=== PATIENT | female | born 1970 | race Two or more races ===

== ENCOUNTER 2021-08-09 23:46 | Emergency (ER) | payer MEDICAID, OTHER ==
[~2021-08-09] VITALS: Ht 160 cm; Wt 68.0 kg
[2021-08-10 01:21] LABS: Basophils # (auto) 0 10 ^3/uL (0-0.2); Basophils % (auto) 0.2 % (0.0-2.0); Eosinophils # (auto) 0.1 10 ^3/uL (0-0.8); Eosinophils % (auto) 0.7 % (0.0-7.0); Hematocrit 37.6 % (36.0-46.0); Hemoglobin 13.1 g/dL (12.2-16.2); Lymphocytes # (auto) 0.5 10 ^3/uL (0.4-5.4); Lymphocytes % (auto) 6.1 % (10.0-50.0); Mean Corpuscular Hgb Conc. 34.7 g/dL (32.0-36.0); Mean Corpuscular Volume 92.2 fL (80.0-100.0); Monocytes # (auto) 0.2 10 ^3/uL (0-1.3); Monocytes % (auto) 2.9 % (0.0-12.0); Neutrophils # (auto) 7.1 10 ^3/uL (1.6-8.6); Neutrophils % (auto) 90.1 % (37.0-80.0); Nucleated Red Blood Cells % 0.1 %; Red Blood Cells 4.07 10^6/uL (4.0-5.20); White Blood Cell 7.9 10^3/uL (4.4-10.8)
[2021-08-10 01:37] LABS: Albumin 3.2 g/dL (3.4-5.0); Calcium 8.2 mg/dL (8.5-10.1); Potassium 3.9 mmol/L (3.5-5.1)
[2021-08-10 01:39] LABS: Lactic Acid w/Reflex 2.4 mmol/L (0.4-2.0)
[2021-08-10 01:43] LABS: Bilirubin, Total 0.4 mg/dL (0.2-1.0); Total Protein 6.9 g/dL (6.4-8.2)
[2021-08-10] MEDS ORDERED: SODIUM CHLORIDE 0.9% 1,000 ML IV ONE ×2 (01:45)
[2021-08-10] MEDS ORDERED: METOCLOPRAMIDE HCL 5MG/ml INJ 2ml VIAL IV ONE (01:45)
[2021-08-10] MEDS ORDERED: SUMAtriptan SUCCINATE 6 MG/0.5 ML VL SC ONE (01:45)
[2021-08-10 02:06] LABS: Urine Bacteria NONE SEEN /hpf (None Seen); Urine Blood Negative /uL (Negative); Urine Mucus FEW (None Seen); Urine Specific Gravity 1.026 (1.001-1.035); Urine WBC 1 /hpf (0 - 5)
[2021-08-10 02:28] LABS: Alcohol, Urine < 3.0 mg/dL (0-10); Amphetamine Screen, Urine NEGATIVE (NEGATIVE); Barbiturate Scree,Urine NEGATIVE (NEGATIVE); Benzodiazephine Screen, Urine NEGATIVE (NEGATIVE); Cannabinoid Screen, Urine NEGATIVE (NEGATIVE); Cocaine Screen, Urine NEGATIVE (NEGATIVE); Opiate Scree,Urine NEGATIVE (NEGATIVE); Phencyclidine Screen, Urine NEGATIVE (NEGATIVE)
[2021-08-10 06:12] VITALS: BP 106/60
== END 2021-08-10 06:45 | disposition home or self-care (01) ==
LOC: ER 23:46 → EDBD 23:46 → ER 08-10 06:45
DX: G44.209 Tension-type headache, unspecified, not intractable (principal); R11.0 Nausea; G43.909 Migraine, unspecified, not intractable, without status migrainosus; Z86.73 Personal history of transient ischemic attack (TIA), and cerebral infarction without residual deficits
CPT/HCPCS: 36415; 71045; 80053; 80307; 81001; 83605; 84484; 85025; 87040; 87086; 93005; 96361; 96372; 96374; 99285; J2765; J3030; J7030

== ENCOUNTER 2025-01-04 12:00 | Inpatient (IN) | payer MEDICAID ==
[~2025-01-04] VITALS: Ht 154.9 cm; Wt 49.0 kg
--- NOTE | 2025-01-04 12:30 | ED.PDOC ---
HPI (NEURO) HPI Comments 54-year-old female with a history of hypertension, diabetes, dyslipidemia and 2 prior strokes with residual left lower extremity weakness brought in by private car, referred by Dr. Albert to rule out stroke. Patient states she was being evaluated in Dr. Albert's office for a headache that she developed last night, when she had sudden onset of left facial numbness/weakness and left upper and lower extremity weakness. She states the current symptoms started around 11:30 a.m.. She denies any vision changes, nausea or vomiting. She states she is usually able to ambulate, however her left lower extremity occasionally gives out. 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 History Family History Family History: Unknown Social History Smoker: Non-Smoker Alcohol: Denies ETOH Use Drugs: Denies Drug Use Lives In: Home Constitutional: denies: chills, diaphoresis, fatigue, fever, malaise, sweats, weakness, others EENTM: denies: blurred vision, double vision, ear bleeding, ear discharge, ear drainage, ear pain, ear ringing, eye pain, eye redness, hearing loss, mouth pain, mouth swelling, nasal discharge, nose bleeding, nose congestion, nose pain, photophobia, tearing, throat pain, throat swelling, voice changes, others Respiratory: denies: cough, hemoptysis, orthopnea, SOB at rest, shortness of breath, SOB with excertion, stridor, wheezing, others Cardiovascular: denies: chest pain, dizzy spells, diaphoresis, Dyspnea on exertion, edema, irregular heart beat, left arm pain, lightheadedness, palpitations, PND, syncope, others Gastrointestinal: denies: abdomen distended, abdominal pain, blood streaked bowels, constipated, diarrhea, dysphagia, difficulty swallowing, hematemesis, melena, nausea, poor appetite, poor fluid intake, rectal bleeding, rectal pain, vomiting, others Genitourinary: denies: abnormal vagina bleeding, burning, dyspareunia, dysuria, flank pain, frequency, hematuria, incontinence, pain, , vagina discharge, urgency, others Neurological: reports: left sided numbness, left sided weakness, numbness, pre- existing deficit, weakness; denies: dizziness, fainting, headache, paresthesia, right sided numbness, right sided weakness, seizure, speech problems, tingling, tremors, others Musculoskeletal: denies: back pain, gout, joint pain, joint swelling, muscle pain, muscle stiffness, neck pain, others Integumetry: denies: bruises, change in color, change in hair/nails, dryness, laceration, lesions, lumps, rash, wounds, others Allergic/Immunocompromised: denies: Difficulty Healing, Frequent Infections, Hives, Itching, others Hematologic/Lymphatic: denies: anemia, blood clots, easy bleeding, easy bruising, swollen glands, others Endocrine: denies: excessive hunger, excessive sweating, excessive thirst, excessive urination, flushing, intolerance to cold, intolerance to heat, unexplained weight gain, unexplained weight loss, others Psychiatric: denies: anxiety, bipolar disorder, depression, hopeless, panic disorder, schizophrenia, sleepless, suicidal, others All Other Systems: Reviewed and Negative Physical Exam General Appearance: Mild Distress HEENT: PERRL/EOMI, Other (Left facial droop) Neck: Full Range of Motion, Non-Tender, Normal Inspection, Supple Respiratory: Lungs Clear, No Accessory Muscle Use, No Respiratory Distress, Normal Breath Sounds Cardiovascular: No Edema, No JVD, Tachycardia Breast Exam: Deferred Gastrointestinal: Non Tender, Soft Genitalia: Deferred Pelvic: Deferred Rectal: Deferred Extremities: Normal inspection, Normal range of motion, Non-tender, No pedal edema Neurologic: Alert (Oriented x4), toddler nanny II-XII nml as Tested (Except 5 and 7), Facial Droop (Left), Headache, Motor Weakness, Sensory Deficit, Other (Left facial droop, diminished light touch sensation left face, left pronator drift, 2/5 strength left upper extremity, 1/5 strength left lower extremity) Cerebellar Function: NOT DONE Reflexes: NOT DONE Skin: Dry, Normal Color, Warm Lymphatic: NOT DONE Was a procedure done? Was a procedure done?: No Differential Diagnosis (SZ) Seizure: CVA/TIA, Hypocalcemia, Hypoglycemia, Hyponatremia, Idiopathic, Mass Lesion, Meningitis, Encephalopathy, Other (Complicated migraine) Headache: Epidural Hemorrhage, Intracerebral Hemorrhage, Subarachnoid Hemorrhage, Subdural Hemorrhage X-Ray, Labs, Meds, VS Vital Signs Date Time Temp Pulse Resp B/P (MAP) Pulse Ox O2 Delivery O2 Flow Rate FiO2 01/04/25 14:00 82 19 125/71 (89) 97 01/04/25 13:30 89 18 134/70 01/04/25 13:03 101 14 131/83 01/04/25 13:00 98 25 131/81 (98) 98 01/04/25 12:20 107 01/04/25 12:12 Room Air* 0 21 01/04/25 12:12 97.7 108 17 146/77 (100) 99 97.7 01/04/25 12:02 97.3 106 18 146/93 97 97.3 Lab Test 01/04/25 13:07 01/04/25 12:25 01/04/25 12:20 Range/Units Troponin I High Sensitivity < 3 L < 3 L </=34 ng/L POC Glucose 91 70-106 mg/dl White Blood Count 7.5 4.4-10.8 10^3/uL Red Blood Count 4.43 4.0-5.20 10^6/uL Hemoglobin 13.9 12.2-16.2 g/dL Hematocrit 41.3 36.0-46.0 % Mean Corpuscular Volume 93.1 80.0-100.0 fL Mean Corpuscular Hemoglobin 31.4 28.0-32.0 pg Mean Corpuscular Hemoglobin Concent 33.8 32.0-36.0 g/dL Red Cell Distribution Width 13.0 11.8-14.3 % Platelet Count 234 140-450 10^3/uL Mean Platelet Volume 8.9 6.9-10.8 fL Neutrophils (%) (Auto) 70.0 37.0-80.0 % Lymphocytes (%) (Auto) 22.4 10.0-50.0 % Monocytes (%) (Auto) 6.9 0.0-12.0 % Eosinophils (%) (Auto) 0.3 0.0-7.0 % Basophils (%) (Auto) 0.4 0.0-2.0 % Neutrophils # (Auto) 5.2 1.6-8.6 10 ^3/uL Lymphocytes # (Auto) 1.7 0.4-5.4 10 ^3/uL Monocytes # (Auto) 0.5 0-1.3 10 ^3/uL Eosinophils # (Auto) 0 0-0.8 10 ^3/uL Basophils # (Auto) 0 0-0.2 10 ^3/uL Nucleated Red Blood Cells 0.0 % Prothrombin Time 10.1 9.3-11.8 sec Prothrombin Time INR 0.95 0.9-1.15 Sodium Level 143 136-145 mmol/L Potassium Level 3.6 3.5-5.1 mmol/L Chloride Level 103 98-107 mmol/L Carbon Dioxide Level 30 20-31 mmol/L Anion Gap 10 5-15 Blood Urea Nitrogen 19 9-23 mg/dL Creatinine 0.76 0.550-1.02 mg/dL Glomerular Filtration Rate Calc 92 >90 mL/min BUN/Creatinine Ratio 25.0 H 10.0-20.0 Serum Glucose 76 74-106 mg/dL Calcium Level 9.7 8.7-10.4 mg/dL Total Bilirubin 0.6 0.2-1.0 mg/dL Aspartate Amino Transferase (AST) 21 13-40 U/L Alanine Aminotransferase (ALT) 23 7-40 U/L Alkaline Phosphatase 62 46-116 U/L B-Type Natriuretic Peptide 30.31 0-100 pg/mL Total Protein 7.0 5.7-8.2 g/dL Albumin 4.6 3.2-4.8 g/dL Current Medications Medications (Trade) Dose Ordered Sig/Leonela Route Start Time Stop Time Status Last Admin Morphine Sulfate 4 mg ONCE ONCE IV 01/04/25 13:00 01/04/25 13:01 DC 01/04/25 13:03 Metoclopramide HCl (Reglan Injection) 10 mg ONCE ONCE IV 01/04/25 13:00 01/04/25 13:01 DC 01/04/25 13:03 PROCEDURE(s): CTH - STROKE CTH REASON: L side weak x 1 h ORDER NUMBER(s): [id number], ACCESSION NUMBER(s): [id number] CT brain without contrast CLINICAL INDICATION: L side weak x 1 h FINDINGS: The study was performed in a multidetector scanner. This study performed taking axial images from the skull base up to the vertex. Both brain and bone windows are photographed. Dose lowering techniques have been used including automated exposure control and adjustment of mA and/or KV according to patient size. Normal and symmetrical shape and density of brain parenchyma above and below the tentorium is seen. There is no mass, midline shift or hydrocephalus. No intra/extra-axial collections demonstrated. There is no intracranial hemorrhage. The calvarium is intact. IMPRESSION: 1. Normal brain and skull. No evidence of intraparenchymal hemorrhage or edema Verbal report given on this patient to the referring physician Dr. Juárez at 1:00 p.m. Computed Tomographic Radiation Dosimetry Report: Total CTDI vol = 52 mGy Total DLP = 897 mGy-cm All CT scans at this medical facility are performed using dose modulation techniques as appropriate to a performed exam including the following: Automated exposure control was utilized; adjustment of the MA and/or KvP according to patient size; and use of iterative reconstruction technique. EDURE(s): [place] - ANGIO HEAD/Neck REASON: L side weak ORDER NUMBER(s): [id number], ACCESSION NUMBER(s): [id number] INDICATION: L side weak COMPARISON: CT STROKE CTH on DOS: 01/04/25 TECHNIQUE: CTA head with intravenous contrast. CTA neck with intravenous contrast. 3D image postprocessing was performed on a dedicated workstation and images were used for interpretation and reporting. Radiation Dose Information: CT Dose: CTDI volume is 22 mGy. Dose-length product is 750 mGy*cm CONTRAST: Type of contrast: Omni 350 Contrast injected: 85 ml FINDINGS: CTA head: There is normal enhancement of the visualized distal internal carotid, anterior and middle cerebral arteries. There is a normal anterior communicating artery complex. Right V4 segment is diminutive. Dominant left posterior communicating artery. The vertebral, basilar, cerebellar and posterior cerebral arteries are within normal limits. The early parenchymal enhancement is grossly unremarkable. The visualized intracranial venous structures are grossly unremarkable. CTA neck: The visualized thoracic aortic arch and proximal great vessels are unremarkable. The left common, internal and external carotid arteries are within normal limits. The right common, internal and external carotid arteries are within normal limits. The cervical segments of the right and left vertebral arteries are within normal limits. The limited visualized lung apices are clear. The surrounding soft tissues and osseous structures are otherwise unremarkable. IMPRESSION: 1. No evidence of hemodynamically significant intracranial stenosis, proximal occlusion or aneurysm. 2. No evidence of hemodynamically significant carotid stenosis or dissection. All CT scans at this medical facility are performed using dose modulation techniques as appropriate to a performed exam including the following: Automated exposure control was utilized; adjustment of the MA and/or KV according to patient size; and use of iterative reconstruction technique. HS:Y EDURE(s): CXRP - CHEST PORTABLE REASON: poss cva ORDER NUMBER(s): [id number], ACCESSION NUMBER(s): [id number] INDICATION: poss cva TECHNIQUE: Frontal view of the chest. COMPARISON: CHEST PORTABLE on DOS: 08/10/21 FINDINGS: Cardiomegaly with pulmonary edema. The heart and mediastinal contours are grossly unremarkable. There is no evidence of pleural disease. The bony stru ctures of the chest are intact without fracture. IMPRESSION: 1. Cardiomegaly with mild pulmonary edema X-Ray, Labs, Meds, VS Comment 54-year-old female with a history of CVA, migraines, hypertension, diabetes and dyslipidemia brought in by private car, referred by Dr. Albert for left facial weakness/numbness, left upper and lower extremity weakness. Vitals remarkable for heart rate 108, BP 146/77 Exam remarkable for diminished light touch sensation left face, left facial droop, left upper extremity pronator drift, 2/5 motor strength left upper extremity, 1/5 motor strength left lower extremity Rhythm strip independently interpreted by me: Sinus tach, rate 108, no ectopy. Noncontrast head CT and CT angio head and neck unremarkable Chest x-ray IMPRESSION: 1. Cardiomegaly with mild pulmonary edema CBC, CMP, BNP, troponin coagulation panel unremarkable Patient treated with the following in the ED: Morphine 4 mg IV, Reglan 10 mg IV Code stroke was immediately initiated and I discussed the case with the stroke neurologist. He evaluated the patient via video consultation. His assessment was possible complicated migraine, as the patient has symptoms were resolving. He recommended migraine pain control. On re-evaluation after pain medication. Cranial nerves 2-12 are intact, motor strength is 5/5 in all extremities except the left lower extremity in which st rength is 3/5. Plan is to admit the patient for brain MRI and Neurology evaluation. Sepsis exclusion note: Tachycardia is likely due to pain/emotional upset, not due to a suspected infection. Sepsis bundle was not initiated due to this reason. Time of 1ST Reevaluation: 12:48 Reevaluation 1ST: Unchanged Patient Education/Counseling: Diagnosis, Treatment, Need For Follow Up Family Education/Counseling: No Family Present Departure 1 Departure Time of Disposition: 15:20 Impression: Primary Impression: Weakness on left side of face Additional Impressions: Weakness of left side of body Headache Qualified Codes: R51.9 - Headache, unspecified Disposition: ADMITTED INPATIENT Admit to: Tele Condition: Guarded Critical Care Note Critical Care Time?: Yes (35 min-critical care time only) Critical care comment: Critical care time including multiple bedside re-evaluations, review of lab and imaging studies, and discussion of the case with the consulting and admitting providers. Patient is high risk for neurologic decompensation. Stability Stability form required: No Heart Score Heart Score: Heart Score Response (Comments) Value History N/A 0 EKG N/A 0 Age N/A 0 Risk Factors N/A 0 Troponin N/A 0 Total 0 I personally scribed for DOMENICO CARDENAS MD ([email or web address]) on 01/04/25 at 12:30. Electronically submitted by Jeet Bah ([email or web address]). DOMENICO CARDENAS MD Jan 04, 2025 12:30
--- NOTE | 2025-01-04 12:51 | BSKYNEURO ---
[facility] Note # Demographics Consult Type: Acute Stroke Level 1 (0-4.5 hrs) Patient Location: Emergency Room First Name: Enedelia Last Name: Meaghan Way Date of : 1970 Age: 54 Gender: Female Facility: [facility] Time of Initial Page (): 01/04/2025 12:22 First Contact with Site (): 01/04/2025 12:23 # HPI Chief Complaint: - weakness (focal) - headache History: 54-year-old female with a history of two prior strokes and residual left lower extremity weakness, presenting with acute onset of severe headache, left facial droop, and worsening left-sided weakness. The patient's baseline condition includes the ability to ambulate, with occasional giving out of her left leg. Yesterday, she experienced a severe headache, prompting a visit to her neurologist's office today. During the evaluation, approximately at 11:30 AM, she developed new symptoms including a left facial droop and worsening weakness in both her left upper and lower extremities. This represents a significant change from her baseline functioning. She said this happens whenever she gets a headache. This happened 2 months ago. She didn't seek medical attention. When her headache got better, her left sided weakness improved back to baseline. She said this is exactly the same as before. Last Known Normal: - 11:30 AM # Scores Time of exam and NIHSS (): 01/04/2025 12:42 Level of Consciousness 1a: [0] = Alert; keenly responsive LOC Questions 1b: [0] = Answers both questions correctly LOC Commands 1c: [0] = Performs both tasks correctly Best Gaze 2: [0] = Normal Visual 3: [0] = No visual loss Facial Palsy 4: [1] = Minor paralysis Motor Arm Left 5a: [0] = No drift Motor Arm Right 5b: [0] = No drift Motor Leg Left 6a: [3] = No effort against gravity Motor Leg Right 6b: [0] = No drift Limb Ataxia 7: [0] = Absent Sensory 8: [0] = Normal Best Language 9: [0] = No aphasia Dysarthria 10: [1] = [id number] dysarthria Extinction and Inattention 11: [0] = No abnormality NIHSS Total: 5 # Data Time Head CT personally read by me (): 01/04/2025 12:[address]: - no bleed - preliminarily reviewed by me, please refer to radiology read for official reading Time CTA personally reviewed by me ([place] Time): 01/04/2025 12:46 CTA Head: - no large vessel occlusion - preliminarily reviewed by me, please refer to radiology read for official reading # Assessment Impression: - Migraine (Complex) - Complicated migraine vs. acute stroke. She's had similar symptoms before in the setting of a headache. Recommend migraine cocktail. If no improvement, recommend MRI Brain wo to r/o an acute infarct # Plan Thrombolytic/Intervention: NOT IV Thrombolysis or IA Intervention candidate Thrombolytic Exclusion (< 3 hour window): - non-disabling deficit Thrombolytic Exclusion: - symptoms are improving and also similar to her complicated migraine presen tations in the past Intraarterial Exclusion: - no large vessel occlusion (LVO) Labs: - TSH - B12 - urine drug screen Imaging: (urgency: routine): - MRI Brain without contrast Medication: - Please HYDRATE aggressively (1-2L NS) - Recommend Magnesium sulfate 1 g IV x 1 (after hydration) - Recommend one time dose of Decadron 10 mg IV - Migraine Cocktail (choose any of the following): Can repeat 1x if needed - Promethazine (Phenergan) 25 mg IV, OR - Metoclopramide (Reglan) 10 mg IV, OR -Compazine 10 mg IV - If the above does not work, try the following: Depacon 500 mg IV (RAPID INFUSION) DVT Prophylaxis: - SCD Other: - If patient has any neurological deterioration please call me back immediately - telemetry monitoring - would not pursue stroke work-up if MRI is negative - I have discussed my recommendations with the referring provider Disposition: observation # Demographics First Name: Enedelia Last Name: Meaghan Nayakarado Facility: [facility] Yes RUIZ HERNANDEZ MD Jan 04, 2025 12:51
[2025-01-04] MEDS: MORPHINE SULFATE 4 MG/ML SYR/VIAL IV ONE (13:03)
[2025-01-04] MEDS: IOHEXOL 350 MG/ML 100ML IJ ONE (13:03)
[2025-01-04] MEDS: METOCLOPRAMIDE HCL 5MG/ml INJ 2ml VIAL IV ONE (13:03)
--- NOTE | 2025-01-04 13:04 | DVH ---
INDICATION: poss cva TECHNIQUE: Frontal view of the chest. COMPARISON: CHEST PORTABLE on DOS: 08/10/21 FINDINGS: Cardiomegaly with pulmonary edema. The heart and mediastinal contours are grossly unremarkable. Ther e is no evidence of pleural disease. The bony structures of the chest are intact without fracture. IMPRESSION: 1. Cardiomegaly with mild pulmonary edema
--- NOTE | 2025-01-04 13:07 | DVH ---
CT brain without contrast CLINICAL INDICATION: L side weak x 1 h FINDINGS: The study was performed in a multidetector scanner. This study performed taking axial image s from the skull base up to the vertex. Both brain and bone windows are photographed. Dose lowering techniques have been used including automated exposure control and adjustment of mA and /or KV according to patient size. Normal and symmetrical shape and density of brain parenchyma above and below the tentorium is seen. T here is no mass, midline shift or hydrocephalus. No intra/extra-axial collections demonstrated. There is no intracranial hemorrhage. The calvarium is intact. IMPRESSION: 1. Normal brain and skull. No evidence of intraparenchymal hemorrhage or edema Verbal report given on this patient to the referring physician Dr. Juárez at 1:00 p.m. Computed Tomographic Radiation Dosimetry Report: Total CTDI vol = 52 mGy Total DLP = 897 mGy-cm All C T scans at this medical facility are performed using dose modulation techniques as appropriate to a p erformed exam including the following: Automated exposure control was utilized; adjustment of the MA and/or KvP according to patient size; and use of iterative reconstruction technique.
--- NOTE | 2025-01-04 13:21 | DVH ---
INDICATION: L side weak COMPARISON: CT STROKE CTH on DOS: 01/04/25 TECHNIQUE: CTA head with intravenous contrast. CTA neck with intravenous contrast. 3D image postproce ssing was performed on a dedicated workstation and images were used for interpretation and reporting. Radiation Dose Information: CT Dose: CTDI volume is 22 mGy. Dose-length product is 750 mGy*cm CONTRAST: Type of contrast: Omni 350 Contrast injected: 85 ml FINDINGS: CTA head: There is normal enhancement of the visualized distal internal carotid, anterior and middle cerebral a rteries. There is a normal anterior communicating artery complex. Right V4 segment is diminutive. Dom inant left posterior communicating artery. The vertebral, basilar, cerebellar and posterior cerebral arteries are within normal limits. The early parenchymal enhancement is grossly unremarkable. The vis ualized intracranial venous structures are grossly unremarkable. CTA neck: The visualized thoracic aortic arch and proximal great vessels are unremarkable. The left common, internal and external carotid arteries are within normal limits. The right common, internal and external carotid arteries are within normal limits. The cervical segments of the right and left vertebral arteries are within normal limits. The limited visualized lung apices are clear. The surrounding soft tissues and osseous structures are otherwise unremarkable. IMPRESSION: 1. No evidence of hemodynamically significant intracranial stenosis, proximal occlusion or aneurysm. 2. No evidence of hemodynamically significant carotid stenosis or dissection. All CT scans at this medical facility are performed using dose modulation techniques as appropriate t o a performed exam including the following: Automated exposure control was utilized; adjustment of th e MA and/or KV according to patient size; and use of iterative reconstruction technique. HS:Y
[2025-01-04 13:29] LABS: Hematocrit 41.3 % (36.0-46.0); Hemoglobin 13.9 g/dL (12.2-16.2); Mean Corpuscular Hemoglobin 31.4 pg (28.0-32.0); Mean Corpuscular Volume 93.1 fL (80.0-100.0); Nucleated Red Blood Cells % 0.0 %
[2025-01-04 13:35] LABS: INR 0.95 (0.9-1.15); Prothrombin Time 10.1 sec (9.3-11.8)
[2025-01-04 13:37] LABS: Alanine Aminotransferase 23 U/L (7-40); Albumin 4.6 g/dL (3.2-4.8); Alkaline Phosphatase 62 U/L (46-116); Anion Gap 10 (5-15); BUN/Creatinine Ratio 25.0 (10.0-20.0); Bilirubin, Total 0.6 mg/dL (0.2-1.0); Blood Urea Nitrogen 19 mg/dL (9-23); Calcium 9.7 mg/dL (8.7-10.4); Carbon Dioxide 30 mmol/L (20-31); Chloride 103 mmol/L (98-107); Glucose 76 mg/dL (74-106); Potassium 3.6 mmol/L (3.5-5.1); Sodium 143 mmol/L (136-145); Total Protein 7.0 g/dL (5.7-8.2)
[2025-01-04] MEDS ORDERED: ONDANSETRON HCL 4 MG/2 ML VIAL IV PRN (15:30)
[2025-01-04] MEDS ORDERED: ACETAMINOPHEN 325 MG TAB PO PRN (15:30)
[2025-01-04] MEDS ORDERED: MORPHINE SULFATE INJ 2 MG/ml SYRG IV PRN (15:30)
[2025-01-04] MEDS ORDERED: NITROGLYCERIN 0.4 MG SL TAB SL PRN (15:30)
[2025-01-04] MEDS ORDERED: DEXTROSE (50%) 50ML SYRG IV PRN (15:30)
--- NOTE | 2025-01-04 16:43 | DVHHP2 ---
History of Present Illness Reason for Visit: Left-sided weakness History of Present Illness 54-year-old female presents for evaluation of left-sided weakness. 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 She states that since yesterday she has been having a headache and today she developed left-sided upper and lower extremity weakness with left facial numbness. She was seen by her safety security officer Dr. Albert who advised her to present to the ER for further evaluation. Currently patient reports symptoms have subsided. Past Medical History Hypertension, dyslipidemia, diabetes mellitus, CVA Past Surgical History Family History Noncontributory Smoke: No ALCOHOL: none Drugs: None Lives: with Family Review of Systems Review of Systems Review of systems are currently negative otherwise addressed in HPI. Allergies: Coded Allergies: NO KNOWN ALLERGIES (Unverified , 08/10/21) Medications Current Medications Medications Dose Ordered Sig/Leonela Route Start Time Stop Time Status Last Admin Dose Admin Aspirin 81 mg DAILY PO 01/05/25 10:00 Atorvastatin Calcium 80 mg HS PO 01/04/25 22:00 Lisinopril 10 mg DAILY PO 01/05/25 10:00 Magnesium Oxide 400 mg DAILY PO 01/05/25 10:00 Diagnostic Test (Pha) 1 strip ACHS 01/04/25 17:00 Insulin Human Regular ACHS SC 01/04/25 17:00 Dextrose 50 ml UD PRN IV 01/04/25 15:30 Acetaminophen/ Hydrocodone Bitart 1 tab Q4HP PRN PO 01/04/25 15:30 Ondansetron HCl 4 mg Q4HP PRN IV 01/04/25 15:30 Acetaminophen 650 mg Q6HP PRN PO 01/04/25 15:30 Nitroglycerin 0.4 mg Q5MINP PRN SL 01/04/25 15:30 Morphine Sulfate 2 mg Q30M PRN IV 01/04/25 15:30 Exam Vital Signs Vital Signs Date Time Temp Pulse Resp B/P (MAP) Pulse Ox O2 Delivery O2 Flow Rate FiO2 01/04/25 16:00 89 15 119/76 (90) 99 01/04/25 15:10 98.0 98.0 01/04/25 12:12 Room Air* 0 21 Exam Gen: 64-year-old female in no apparent distress. Skin: Warm, dry, normal color and texture, no rash. HEENT: Normocephalic atraumatic, mucous membranes moist and pink. Neck: Cervical and supraclavicular nodes normal without enlargement, trachea is midline, thyroid gland is normal without masses. Pulmonary: Clear to auscultation and percussion bilaterally. Cardiac: Regular rate and rhythm. No murmur Abdomen: Soft, nontender, nondistended, bowel sounds present all 4 quadrants, no guarding, no rigidity, no organomegaly. Extremities: No cyanosis, clubbing, no edema Neuro: Cranial nerves II through XII grossly intact, normal affect and speech, LLE 3/5 (baseline from previous CVA) Labs/Xrays ORDERING PHYSICIAN: DOMENICO CARDENAS MD PROCEDURE(s): CXRP - CHEST PORTABLE REASON: poss cva ORDER NUMBER(s): [id number], ACCESSION NUMBER(s): [id number] INDICATION: poss cva TECHNIQUE: Frontal view of the chest. COMPARISON: CHEST PORTABLE on DOS: 08/10/21 FINDINGS: Cardiomegaly with pulmonary edema. The heart and mediastinal contours are grossly unremarkable. There is no evidence of pleural disease. The bony structures of the chest are intact without fracture. IMPRESSION: 1. Cardiomegaly with mild pulmonary edema RING PHYSICIAN: DOMENICO CARDENAS MD PROCEDURE(s): CTH - STROKE CTH REASON: L side weak x 1 h ORDER NUMBER(s): [id number], ACCESSION NUMBER(s): [id number] CT brain without contrast CLINICAL INDICATION: L side weak x 1 h FINDINGS: The study was performed in a multidetector scanner. This study performed taking axial images from the skull base up to the vertex. Both brain and bone windows are photographed. Dose lowering techniques have been used including automated exposure control and adjustment of mA and/or KV according to patient size. Normal and symmetrical shape and density of brain parenchyma above and below the tentorium is seen. There is no mass, midline shift or hydrocephalus. No intra/extra-axial collections demonstrated. There is no intracranial hemorrhage. The calvarium is intact. IMPRESSION: 1. Normal brain and skull. No evidence of intraparenchymal hemorrhage or edema Verbal report given on this patient to the referring physician Dr. Juárez at 1:00 p.m. Computed Tomographic Radiation Dosimetry Report: Total CTDI vol = 52 mGy Total DLP = 897 mGy-cm All CT scans at this medical facility are performed using dose modulation techniques as appropriate to a performed exam including the following : Automated exposure control was utilized; adjustment of the MA and/or KvP according to patient size; and use of iterative reconstruction technique. RING PHYSICIAN: DOMENICO CARDENAS MD PROCEDURE(s): [place] - ANGIO HEAD/Neck REASON: L side weak ORDER NUMBER(s): [id number], ACCESSION NUMBER(s): [id number] INDICATION: L side weak COMPARISON: CT STROKE CTH on DOS: 01/04/25 TECHNIQUE: CTA head with intravenous contrast. CTA neck with intravenous contrast. 3D image postprocessing was performed on a dedicated workstation and images were used for interpretation and reporting. Radiation Dose Information: CT Dose: CTDI volume is 22 mGy. Dose-length product is 750 mGy*cm CONTRAST: Type of contrast: Omni 350 Contrast injected: 85 ml FINDINGS: CTA head: There is normal enhancement of the visualized distal internal carotid, anterior and middle cerebral arteries. There is a normal anterior communicating artery complex. Right V4 segment is diminutive. Dominant left posterior communicating artery. The vertebral, basilar, cerebellar and posterior cerebral arteries are within normal limits. The early parenchymal enhancement is grossly unremarkable. The visualized intracranial venous structures are grossly unremarkable. CTA neck: The visualized thoracic aortic arch and proximal great vessels are unremarkable. The left common, internal and external carotid arteries are within normal limits. The right common, internal and external carotid arteries are within normal limits. The cervical segments of the right and left vertebral arteries are within normal limits. The limited visualized lung apices are clear. The surrounding soft tissues and osseous structures are otherwise unremarkable. IMPRESSION: 1. No evidence of hemodynamically significant intracranial stenosis, proximal occlusion or aneurysm. 2. No evidence of hemodynamically significant carotid stenosis or dissection. All CT scans at this medical facility are performed using dose modulation techniques as appropriate to a performed exam including the following: Automated exposure control was utilized; adjustment of the MA and/or KV according to patient size; and use of iterative reconstruction technique. HS:Y Labs Test 01/04/25 13:07 01/04/25 12:25 01/04/25 12:20 Range/Units Troponin I High Sensitivity < 3 L </=34 ng/L POC Glucose 91 70-106 mg/dl White Blood Count 7.5 4.4-10.8 10^3/uL Red Blood Count 4.43 4.0-5.20 10^6/uL Hemoglobin 13.9 12.2-16.2 g/dL Hematocrit 41.3 36.0-46.0 % Mean Corpuscular Volume 93.1 80.0-100.0 fL Mean Corpuscular Hemoglobin 31.4 28.0-32.0 pg Mean Corpuscular Hemoglobin Concent 33.8 32.0-36.0 g/dL Red Cell Distribution Width 13.0 11.8-14.3 % Platelet Count 234 140-450 10^3/uL Mean Platelet Volume 8.9 6.9-10.8 fL Neutrophils (%) (Auto) 70.0 37.0-80.0 % Lymphocytes (%) (Auto) 22.4 10.0-50.0 % Monocytes (%) (Auto) 6.9 0.0-12.0 % Eosinophils (%) (Auto) 0.3 0.0-7.0 % Basophils (%) (Auto) 0.4 0.0-2.0 % Neutrophils # (Auto) 5.2 1.6-8.6 10 ^3/uL Lymphocytes # (Auto) 1.7 0.4-5.4 10 ^3/uL Monocytes # (Auto) 0.5 0-1.3 10 ^3/uL Eosinophils # (Auto) 0 0-0.8 10 ^3/uL Basophils # (Auto) 0 0-0.2 10 ^3/uL Nucleated Red Blood Cells 0.0 % Prothrombin Time 10.1 9.3-11.8 sec Prothrombin Time INR 0.95 0.9-1.15 Sodium Level 143 136-145 mmol/L Potassium Level 3.6 3.5-5.1 mmol/L Chloride Level 103 98-107 mmol/L Carbon Dioxide Level 30 20-31 mmol/L Anion Gap 10 5-15 Blood Urea Nitrogen 19 9-23 mg/dL Creatinine 0.76 0.550-1.02 mg/dL Glomerular Filtration Rate Calc 92 >90 mL/min BUN/Creatinine Ratio 25.0 H 10.0-20.0 Serum Glucose 76 74-106 mg/dL Calcium Level 9.7 8.7-10.4 mg/dL Total Bilirubin 0.6 0.2-1.0 mg/dL Aspartate Amino Transferase (AST) 21 13-40 U/L Alanine Aminotransferase (ALT) 23 7-40 U/L Alkaline Phosphatase 62 46-116 U/L B-Type Natriuretic Peptide 30.31 0-100 pg/mL Total Protein 7.0 5.7-8.2 g/dL Albumin 4.6 3.2-4.8 g/dL SEPSIS Sepsis Screen Date sepsis recognized/suspect: Jan 04, 2025 Time Sepsis recognized/suspect: 1204 Recent Procedure: No On Antibiotic Therapy: No Respiratory Rate >20: No Heart Rate >90: Yes Temp<36 C (96.8 F) or >38.3 C: No SBP <90 or MAP <65 mmHG: No New Acute Mental Status Change: No Is the patient on CPAP, BIPAP,: No Physician Orders Stroke Assessment (01/04/25 12:29) Vital Signs .PER UNIT PROTOCOL (01/04/25 12:29) Semiconductor Engineer (01/04/25 12:29) Accurate Weight In Kg (01/04/25 12:29) Electrocardigram (01/04/25 12:29) Accucheck (01/04/25 12:29) * Neurology Consult (01/04/25 12:29) 2 Large Bore Ivs (20mg Or Larg (01/04/25 12:29) Nursing Dysphagia Screen (01/04/25 12:29) Neuro Checks Per Unit Protocol (01/04/25 12:29) Chest Portable (01/04/25 12:28) Urinalysis (01/04/25 12:28) Ct Head Cva (01/04/25 12:28) Angio Head/Neck (01/04/25 12:28) Aspirin Tablet (01/05/25 10:00) Atorvastatin (Lipitor) (01/04/25 22:00) Lisinopril Tablet (Zestril Tablet) (01/05/25 10:00) Magnesium Oxide Tablet (Mag-Ox Tablet) (01/05/25 10:00) Brain Head Wo Contrast (01/04/25 15:22) Glucose Blood (Accu-Chek Comfort Curve T (01/04/25 17:00) Insulin R (Human) (Insulin R) (01/04/25 17:00) Dextrose 50% Syringe (01/04/25 15:30) Admit (01/04/25 15:22) Hydrocodone-Acet 5/325mg Tab ([place] 5/32 (01/04/25 15:30) Ondansetron Hcl (Zofran) (01/04/25 15:30) Cardiac Diet-2gna,Lofat,Lochol (01/04/25 Dinner) Condition: Stable (01/04/25 15:22) Acetaminophen Tablet (Tylenol Tablet) (01/04/25 15:30) Bedrest With Bathroom Privileg (01/04/25 15:22) Nitroglycerin Sublingual (Ntrostat Subli (01/04/25 15:30) Morphine Sulfate Injection (01/04/25 15:30) Stat Ekg For Chest Pain (01/04/25 15:22) Notify Md Of Changes From Base (01/04/25 15:22) Workers Compensation Consultant For 24 Hours (01/04/25 15:22) Emergency Dysrhythmia Protocol (01/04/25 15:22) Rhythm Strips Once Every Shift (01/04/25 15:22) Oxygen By Nasal Cannula (01/04/25 15:22) Vital Signs Date Time Temp Pulse Resp B/P (MAP) Pulse Ox O2 Delivery O2 Flow Rate FiO2 01/04/25 16:00 89 15 119/76 (90) 99 01/04/25 16:00 91 01/04/25 15:10 98.0 87 24 121/69 (86) 96 98.0 01/04/25 14:00 82 19 125/71 (89) 97 01/04/25 13:30 89 18 134/70 01/04/25 13:03 101 14 131/83 01/04/25 13:00 98 25 131/81 (98) 98 01/04/25 12:20 107 01/04/25 12:12 Room Air* 0 21 01/04/25 12:12 97.7 108 17 146/77 (100) 99 97.7 01/04/25 12:02 97.3 106 18 146/93 97 97.3 Laboratory Tests Test 01/04/25 12:20 White Blood Count 7.5 10^3/uL (4.4-10.8) Medications Medications Dose Ordered Sig/Leonela Route Start Time Stop Time Status Last Admin Dose Admin Metoclopramide HCl 10 mg ONCE ONCE IV 01/04/25 13:00 01/04/25 13:01 DC 01/04/25 13:03 10 MG Morphine Sulfate 4 mg ONCE ONCE IV 01/04/25 13:00 01/04/25 13:01 DC 01/04/25 13:03 4 MG Assessment/Plan Assessment/Plan Assessment Left sided weakness rule out CVA Headache Diabetes mellitus Hypertension Plan Admit the patient to [facility] to the hospitalist Nephrology consultation MRI of the brain pending Resume home medications Continue treatment per orders. Plan discussed with: Patient My Orders Orders - TORITO HEWITT Procedure Category Date Status Time Aspirin Tablet PHA 01/05/25 In Process 10:00 Atorvastatin (Lipitor) PHA 01/04/25 In Process 22:00 Lisinopril Tablet PHA 01/05/25 In Process (Zestril Tablet) 10:00 Magnesium Oxide PHA 01/05/25 In Process Tablet (Mag-Ox Tablet) 10:00 Brain Head Wo Contrast MRI 01/04/25 Logged 15:22 Glucose Blood PHA 01/04/25 In Process (Accu-Chek Comfort 17:00 Insulin R (Human) PHA 01/04/25 In Process (Insulin R) 17:00 Dextrose 50% Syringe PHA 01/04/25 In Process 15:30 Admit ADMIT 01/04/25 Transmitted 15:22 Hydrocodone-Acet PHA 01/04/25 In Process 5/325mg Tab ([place] 15:30 Ondansetron Hcl PHA 01/04/25 In Process (Zofran) 15:30 Cardiac DIET 01/04/25 Transmitted Diet-2gna,Lofat,Lochol Dinner Condition: Stable KEREN 01/04/25 In Process 15:22 Acetaminophen Tablet PHA 01/04/25 In Process (Tylenol Tablet) 15:30 Bedrest With Bathroom KEREN 01/04/25 In Process Privileg 15:22 Nitroglycerin PHA 01/04/25 In Process Sublingual (Ntrostat 15:30 Morphine Sulfate PHA 01/04/25 In Process Injection 15:30 Stat Ekg For Chest [facility] 01/04/25 In Process Pain 15:22 Notify Md Of Changes [facility] 01/04/25 In Process From Base 15:22 Workers Compensation Consultant For [facility] 01/04/25 In Process 24 Hours 15:22 Emergency Dysrhythmia [facility] 01/04/25 In Process Protocol 15:22 Rhythm Strips Once [facility] 01/04/25 In Process Every Shift 15:22 Oxygen By Nasal RT 01/04/25 Transmitted Cannula 15:22 Date of Service: Jan 04, 2025 Billing Provider: TORITO HEWITT Common Visit Codes: [id number] INP/OBS CARE (HIGH) TORITO HEWITT Jan 04, 2025 16:43
[2025-01-04] MEDS: InsuLIN REG 1unit/0.01ml Soln (100units/ml) SC SCH (17:00)
[2025-01-04 17:20] VITALS: BP 126/73; PULSE 92; RESP 16; TEMP 97.8; O2SAT 0
--- NOTE | 2025-01-04 18:31 | DVH ---
EXAMINATION: MRI BRAIN HEAD WO CONTRAST INDICATION: r/o cva COMPARISON: None TECHNIQUE: Multiplanar, multisequence magnetic resonance imaging of the brain was performed without the use of i ntravenous contrast. FINDINGS: No evidence of acute or remote infarct. No intracranial hemorrhage. No mass effect. There is periventricular/deep white matter T2/FLAIR hyperintensity is nonspecific, but most commonly associated with chronic microvascular disease. The ventricles and sulci are normal in size for age. Clear basal cisterns. Flow voids in the major intracranial vessels are maintained. No abnormality of the orbits. Paranasal sinuses and mastoid air cells are clear. No abnormality of the visualized osseous structures and extracranial soft tissues. IMPRESSION: No acute infarct, intracranial hemorrhage, mass effect, or hydrocephalus.
[2025-01-04] MEDS: ACCU-CHEK COMFORT CURVE STRIP VI SCH (18:40)
[2025-01-04 20:00] VITALS: PULSE 96; RESP 18; O2SAT 98
[2025-01-04 21:00] VITALS: BP 122/75; PULSE 93; RESP 17; TEMP 98.4; O2SAT 96
[2025-01-04] MEDS: ATORVASTATIN 20 MG TAB PO SCH (23:33)
[2025-01-05] VITALS (8 sets, daily range): BP systolic 103–120; BP diastolic 64–75; PULSE 78–96; RESP 16–18; TEMP 96.4–98.3; O2SAT 95–98
[2025-01-05] MEDS: LISINOPRIL 5 MG TAB PO SCH (08:52)
[2025-01-05] MEDS: MAGNESIUM OXIDE 400 MG TAB PO SCH (08:52)
--- NOTE | 2025-01-05 13:58 | DVHPN2 ---
Subjective Patient is doing better but still has concerns of a weakness Reviewed: Care Plan, H&P Changes from previous H/P or p: No Changes General: Per HPI Objective Vitals Vital Signs Date Time Temp Pulse Resp B/P (MAP) Pulse Ox O2 Delivery O2 Flow Rate FiO2 01/05/25 12:59 97.4 81 16 111/75 (87) 97 97.4 01/05/25 08:00 Room Air* 0 21 Intake/Output Intake and Output 01/05/25 07:00 Intake Total 300 ml Balance 300 ml Intake Oral 300 ml # Voids 2 Exam GEN: Healthy appearing, well-developed, NAD. HEENT: NC/AT; MMM. CV: RRR, no m/r/g. LUNGS: CTAB, no w/r/c. ABD: Soft, NT/ND, NBS, no masses or organomegaly. EXT: skin Warm, well perfused. no rashes. No clubbing, cyanosis, or edema. NEURO: Ambulating with no limitations. No focal deficits. Left facial droop, right lower extremity weakness Medications Current Medications Medications Dose Ordered Sig/Leonela Route Start Time Stop Time Status Last Admin Dose Admin Aspirin 81 mg DAILY PO 01/05/25 10:00 01/05/25 08:51 81 MG Atorvastatin Calcium 80 mg HS PO 01/04/25 22:00 01/04/25 23:33 80 MG Lisinopril 10 mg DAILY PO 01/05/25 10:00 01/05/25 08:52 10 MG Magnesium Oxide 400 mg DAILY PO 01/05/25 10:00 01/05/25 08:52 400 MG Diagnostic Test (Pha) 1 strip ACHS 01/04/25 17:00 01/05/25 11:50 1 STRIP Insulin Human Regular ACHS SC 01/04/25 17:00 01/04/25 23:34 2 UNITS Dextrose 50 ml UD PRN IV 01/04/25 15:30 Acetaminophen/ Hydrocodone Bitart 1 tab Q4HP PRN PO 01/04/25 15:30 Ondansetron HCl 4 mg Q4HP PRN IV 01/04/25 15:30 Acetaminophen 650 mg Q6HP PRN PO 01/04/25 15:30 Nitroglycerin 0.4 mg Q5MINP PRN SL 01/04/25 15:30 Morphine Sulfate 2 mg Q30M PRN IV 01/04/25 15:30 Clopidogrel Bisulfate 75 mg DAILY PO 01/06/25 10:00 Laboratory Results Laboratory Tests 01/04/25 12:20 Labs and/or images reviewed: Labs reviewed by me, Image(s) reviewed by me Assessment/Plan Assessment/Plan 54-year-old female w pmhx Hypertension, dyslipidemia, diabetes mellitus, CVA . presents for evaluation of left-sided weakness. 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 She states that since yesterday she has been having a headache and today she developed left-sided upper and lower extremity weakness with left facial numbness. She was seen by her screen tender helper Dr. Albert who advised her to present to the ER for further evaluation. Currently patient reports symptoms have subsided. 01/05: Patient has history of CVA, and now she has left face weakness and right leg weakness. Many neurology to evaluate. We will also start Plavix 75 daily developed into her aspirin. CVA rule out History of CVA Diabetes Hyperlipidemia Hypertension -continue home meds -aspirin -continue statin -q.6 neuro checks -continue Plavix -consult neurology Diet diabetic Med surge Full code Plan discussed with: Patient My Orders Orders - SELWYN DE OLIVEIRA MD Procedure Category Date Status Time Clopidogrel Bisulfate PHA 01/06/25 In Process (Plavix) 10:00 Date of Service: Jan 05, 2025 Billing Provider: SELWYN DE OLIVEIRA MD Common Visit Codes: [id number] INP/OBS CARE(HIGH) SELWYN DE OLIVEIRA MD Jan 05, 2025 13:58
[2025-01-05] MEDS: CLOPIDOGREL BISULFATE 75 MG TAB PO ONE (16:45)
[2025-01-05] MEDS: HYDROcodone-ACET 5/325MG TAB PO PRN (16:50)
[2025-01-06] VITALS (8 sets, daily range): BP systolic 97–120; BP diastolic 68–82; PULSE 71–95; RESP 16–18; TEMP 97–98.1; O2SAT 97–100
[2025-01-06] MEDS: CLOPIDOGREL BISULFATE 75 MG TAB PO SCH (10:24)
--- NOTE | 2025-01-06 15:25 | DVHPN2 ---
Subjective Patient is doing better but still has concerns of a weakness Reviewed: Care Plan, H&P Changes from previous H/P or p: No Changes General: Per HPI Objective Vitals Vital Signs Date Time Temp Pulse Resp B/P (MAP) Pulse Ox O2 Delivery O2 Flow Rate FiO2 01/06/25 13:00 97.3 80 16 120/82 (95) 98 97.3 01/06/25 08:00 Room Air* 0 21 Intake/Output Intake and Output 01/06/25 07:00 Intake Total 900 ml Balance 900 ml Intake Oral 900 ml # Voids 4 # Bowel Movements 1 Exam GEN: Healthy appearing, well-developed, NAD. HEENT: NC/AT; MMM. CV: RRR, no m/r/g. LUNGS: CTAB, no w/r/c. ABD: Soft, NT/ND, NBS, no masses or organomegaly. EXT: skin Warm, well perfused. no rashes. No clubbing, cyanosis, or edema. NEURO: Ambulating with no limitations. No focal deficits. Left facial droop, right lower extremity weakness Medications Current Medications Medications Dose Ordered Sig/Leonela Route Start Time Stop Time Status Last Admin Dose Admin Aspirin 81 mg DAILY PO 01/05/25 10:00 01/06/25 10:24 81 MG Atorvastatin Calcium 80 mg HS PO 01/04/25 22:00 01/05/25 21:58 80 MG Lisinopril 10 mg DAILY PO 01/05/25 10:00 01/06/25 10:24 10 MG Magnesium Oxide 400 mg DAILY PO 01/05/25 10:00 01/06/25 10:24 400 MG Diagnostic Test (Pha) 1 strip ACHS 01/04/25 17:00 01/06/25 11:35 1 STRIP Insulin Human Regular ACHS SC 01/04/25 17:00 01/06/25 11:36 2 UNITS Dextrose 50 ml UD PRN IV 01/04/25 15:30 Acetaminophen/ Hydrocodone Bitart 1 tab Q4HP PRN PO 01/04/25 15:30 01/05/25 16:50 1 TAB Ondansetron HCl 4 mg Q4HP PRN IV 01/04/25 15:30 Acetaminophen 650 mg Q6HP PRN PO 01/04/25 15:30 Nitroglycerin 0.4 mg Q5MINP PRN SL 01/04/25 15:30 Morphine Sulfate 2 mg Q30M PRN IV 01/04/25 15:30 Clopidogrel Bisulfate 75 mg DAILY PO 01/06/25 10:00 01/06/25 10:24 75 MG Laboratory Results Laboratory Tests 01/04/25 12:20 Labs and/or images reviewed: Labs reviewed by me, Image(s) reviewed by me Assessment/Plan Assessment/Plan 54-year-old female w pmhx Hypertension, dyslipidemia, diabetes mellitus, CVA . presents for evaluation of left-sided weakness. 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 She states that since yesterday she has been having a headache and today she developed left-sided upper and lower extremity weakness with left facial numbness. She was seen by her ornamental iron worker helper Dr. Albert who advised her to present to the ER for further evaluation. Currently patient reports symptoms have subsided. 01/05: Patient has history of CVA, and now she has left face weakness and right leg weakness. Many neurology to evaluate. We will also start Plavix 75 daily developed into her aspirin. 01/06: Patient doing well. Neurology consult would not placed correctly, we will consult Neurology today. Patient's symptoms are actually improving left facial weakness and facial droop is less noticeable. Continuing DAPT. CVA rule out History of CVA Diabetes Hyperlipidemia Hypertension -continue home meds -aspirin -continue statin -q.6 neuro checks -continue Plavix -consult neurology Diet diabetic Med surge Full code Plan discussed with: Patient My Orders Orders - SELWYN DE OLIVEIRA MD Procedure Category Date Status Time * Neurology Consult CONS 01/06/25 Transmitted 12:37 Date of Service: Jan 06, 2025 Billing Provider: SELWYN DE OLIVEIRA MD Common Visit Codes: [id number] INP/OBS CARE(HIGH) SELWYN DE OLIVEIRA MD Jan 06, 2025 15:25
[2025-01-07 01:00] VITALS: BP 117/80; PULSE 88; RESP 16; TEMP 98.3; O2SAT 97
[2025-01-07 05:00] VITALS: BP 96/53; PULSE 91; RESP 17; TEMP 98.1; O2SAT 96
[2025-01-07 07:31] LABS: Anion Gap 9 (5-15); Carbon Dioxide 27 mmol/L (20-31); Chloride 102 mmol/L (98-107); Potassium 4.7 mmol/L (3.5-5.1); Sodium 138 mmol/L (136-145)
[2025-01-07 07:32] LABS: Calcium 9.6 mg/dL (8.7-10.4)
[2025-01-07 07:37] LABS: BUN/Creatinine Ratio 17.0 (10.0-20.0); Blood Urea Nitrogen 15 mg/dL (9-23)
[2025-01-07 07:38] VITALS: RESP 16
[2025-01-07 07:46] LABS: Glucose 165 mg/dL (74-106)
[2025-01-07 09:00] VITALS: BP 117/78; PULSE 88; RESP 16; TEMP 97.3; O2SAT 98
[2025-01-07 13:00] VITALS: BP 121/80; PULSE 93; RESP 16; TEMP 97.5; O2SAT 98
[2025-01-07] MEDS ORDERED: ATOR-507 PO (13:45)
[2025-01-07] MEDS ORDERED: CLOP75TA28 PO (13:45)
[2025-01-07] MEDS ORDERED: ASPI1TAB19 PO (13:45)
[2025-01-07] MEDS ORDERED: LISI-275 PO (13:45)
--- NOTE | 2025-01-07 13:52 | DVHDS2 ---
Discharge Summary Date of Admission Jan 04, 2025 at 15:22 Date of Discharge: Jan 07, 2025 Labs/Diagnostic Data: Laboratory Results Test 01/07/25 11:02 01/07/25 06:59 01/04/25 13:07 01/04/25 12:20 POC Glucose 234 mg/dl (70-106) Sodium Level 138 mmol/L (136-145) Potassium Level 4.7 mmol/L (3.5-5.1) Chloride Level 102 mmol/L (98-107) Carbon Dioxide Level 27 mmol/L (20-31) Anion Gap 9 (5-15) Blood Urea Nitrogen 15 mg/dL (9-23) Creatinine 0.88 mg/dL (0.550-1.02) Glomerular Filtration Rate Calc 77 mL/min (>90) BUN/Creatinine Ratio 17.0 (10.0-20.0) Serum Glucose 165 mg/dL (74-106) Calcium Level 9.6 mg/dL (8.7-10.4) Troponin I High Sensitivity < 3 ng/L (</=34) White Blood Count 7.5 10^3/uL (4.4-10.8) Red Blood Count 4.43 10^6/uL (4.0-5.20) Hemoglobin 13.9 g/dL (12.2-16.2) Hematocrit 41.3 % (36.0-46.0) Mean Corpuscular Volume 93.1 fL (80.0-100.0) Mean Corpuscular Hemoglobin 31.4 pg (28.0-32.0) Mean Corpuscular Hemoglobin Concent 33.8 g/dL (32.0-36.0) Red Cell Distribution Width 13.0 % (11.8-14.3) Platelet Count 234 10^3/uL (140-450) Mean Platelet Volume 8.9 fL (6.9-10.8) Neutrophils (%) (Auto) 70.0 % (37.0-80.0) Lymphocytes (%) (Auto) 22.4 % (10.0-50.0) Monocytes (%) (Auto) 6.9 % (0.0-12.0) Eosinophils (%) (Auto) 0.3 % (0.0-7.0) Basophils (%) (Auto) 0.4 % (0.0-2.0) Neutrophils # (Auto) 5.2 10 ^3/uL (1.6-8.6) Lymphocytes # (Auto) 1.7 10 ^3/uL (0.4-5.4) Monocytes # (Auto) 0.5 10 ^3/uL (0-1.3) Eosinophils # (Auto) 0 10 ^3/uL (0-0.8) Basophils # (Auto) 0 10 ^3/uL (0-0.2) Nucleated Red Blood Cells 0.0 % Prothrombin Time 10.1 sec (9.3-11.8) Prothrombin Time INR 0.95 (0.9-1.15) Total Bilirubin 0.6 mg/dL (0.2-1.0) Aspartate Amino Transferase (AST) 21 U/L (13-40) Alanine Aminotransferase (ALT) 23 U/L (7-40) Alkaline Phosphatase 62 U/L (46-116) B-Type Natriuretic Peptide 30.31 pg/mL (0-100) Total Protein 7.0 g/dL (5.7-8.2) Albumin 4.6 g/dL (3.2-4.8) Other Laboratory Tests 01/07/25 06:59 01/04/25 12:20 Brief Hx & Hospital Course: 54-year-old female w pmhx Hypertension, dyslipidemia, diabetes mellitus, CVA . presents for evaluation of left-sided weakness. 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 She states that since yesterday she has been having a headache and today she developed left-sided upper and lower extremity weakness with left facial numbness. She was seen by her noc analyst Dr. Albert who advised her to present to the ER for further evaluation. Currently patient reports symptoms have subsided. 01/05: Patient has history of CVA, and now she has left face weakness and right leg weakness. Many neurology to evaluate. We will also start Plavix 75 daily developed into her aspirin. 01/06: Patient doing well. Neurology consult would not placed correctly, we will consult Neurology today. Patient's symptoms are actually improving left facial weakness and facial droop is less noticeable. Continuing DAPT. 01/07: Patient is doing well, symptoms keep him morphine. Patient is stable to go home and follow up with Neurology outpatient. Stable for discharge as per plan below. ABCD2 score is 6 patient will need Plavix for 21 days. MRI negative for acute stroke. Diagnosis: Left facial palsy due to TIA, likely CVA ruled out History of CVA Diabetes Hyperlipidemia Hypertension Discharge plan: - Start aspirin 81 daily, Plavix 75 daily for 21 days, Lipitor 40 daily, lisinopril 5 daily - Continue with the current medications - Follow up with neurology - diet diabetic, low-salt - Follow up with PCP to review discharge Condition at Discharge: Fair Final Diagnosis/Problems List Left facial palsy due to TIA, likely CVA ruled out History of CVA Diabetes Hyperlipidemia Hypertension Discharge Disposition: Home Discharge Instruct/Medications Diet: Consistent carbohydrate Activity: No Restrictions, As Tolerated Scheduled Aspirin (Aspirin), 81 MG PO DAILY Atorvastatin Calcium (Lipitor), 1 TAB PO DAILY Clopidogrel Bisulfate (Plavix), 1 TAB PO DAILY Lisinopril (Lisinopril), 5 MG PO DAILY Discharge Statement: "Patient was advised to return to the ER or call 911 if any headaches, dizziness, shortness of breath, chest pain, abdominal pain, bleeding, fevers, or worsening of medical condition. Patient was counseled about treatment plan, medications, possible side effects, patientverbalized understanding. All questions were answered to the best of my ability. This discharge took greater then 30 minutes in planning, reviewing documentation, counseling the patient, and discussing with other team members." Date of Service: Jan 07, 2025 Billing Provider: SELWYN DE OLIVEIRA MD Common Visit Codes: 63647-PCL/OBS DISCH DAY >30min SELWYN DE OLIVEIRA MD Jan 07, 2025 13:52
[2025-01-07 14:44] VITALS: BP 121/80; PULSE 93; RESP 16; TEMP 97.5; O2SAT 98
== END 2025-01-07 16:00 | disposition home or self-care (01) | DRG 47 ==
LOC: ER 12:00 → OVERFLOW 15:22 → CENTRAL 17:03
PROVIDERS: ADMIT Nurse Practitioner; ATTEND Nurse Practitioner
DX: G45.9 Transient cerebral ischemic attack, unspecified (principal); E11.9 Type 2 diabetes mellitus without complications; G51.0 Bell's palsy; I10 Essential (primary) hypertension; E78.5 Hyperlipidemia, unspecified; Z98.891 History of uterine scar from previous surgery; Z79.899 Other long term (current) drug therapy; I69.344 Monoplegia of lower limb following cerebral infarction affecting left non-dominant side; Z79.02 Long term (current) use of antithrombotics/antiplatelets
CPT/HCPCS: 36415; 59025; 70450; 70496; 70498; 70551; 71045; 80048; 80053; 81002; 82962; 83880; 84484; 85025; 85610; 94760; 96374; 96375; 99291; G0378; J1815